=== PATIENT | female | born 1950 ===

== ENCOUNTER 2020-07-06 06:44 | Day surgery (SDC) | payer OTHER, MEDICARE ==
[2020-07-06] MEDS ORDERED: SODIUM CHLORIDE 0.9% 1000 ML 1,000 ML IV SCH (07:00)
[2020-07-06] MEDS ORDERED: SODIUM CHLORIDE 0.9% 1000 ML 1,000 ML ONE (07:07)
[2020-07-06] MEDS ORDERED: WATER FOR IRRIG STERILE 250 ML BOTTLE IR ONE (07:23)
[2020-07-06] MEDS ORDERED: WATER FOR IRRIG STERILE 1,000 ML BOTTLE ONE (07:23)
[2020-07-06] MEDS ORDERED: INSULIN REGULAR, HUMAN 100 UNIT/ML 3ML VIAL IV ONE (07:26)
--- NOTE | 2020-07-06 07:29 | Anesthesia Consultation ---
Anesthesia Consult and Med Hx Date of service: 07/06/20 - Airway Anesthetic Teeth Evaluation: Good ROM Head & Neck: Adequate Mental/Hyoid Distance: Adequate Mallampati Class: Class III Intubation Access Assessment: Possibly Difficult - Pulmonary Exam CTA: Yes - Cardiac Exam Cardiac Exam: RRR - Pre-Operative Health Status ASA Pre-Surgery Classification: ASA2 Proposed Anesthetic Plan: MAC - Pulmonary Hx Smoking: No Hx Respiratory Symptoms: No - Cardiovascular System Hx Hypertension: No Hx Heart Attack/AMI: No Hx Percutaneous Transluminal Coronary Angioplasty (PTCA): No Hx Cardia Arrhythmia: No - Central Nervous System CVA: No - Gastrointestinal Hx Gastroesophageal Reflux Disease: No - Endocrine Hx Renal Disease: No Hx Liver Disease: No Hx Non-Insulin Dependent Diabetes: Yes Hx Thyroid Disease: No - Other Systems Hx Obesity: No - Additional Comments Anesthesia Medical History Comments: No hx anesthetic complications. Has not taken oral DM medications in 2 days. Glucose elevated in preop. Will give insulin and recheck.
--- NOTE | 2020-07-06 07:29 | Anesthesia Day of Surgery ---
Anesthesia Day of Surgery - Day of Surgery Patient Examined: Yes Patient H&P Reviewed: Yes Patient is NPO: Yes
[2020-07-06] MEDS ORDERED: INSULIN REGULAR, HUMAN 100 UNITS/1 ML ONE (07:32)
[2020-07-06] MEDS ORDERED: LIDOCAINE MPF (2%) 20 MG/1 ML VIAL 5 ML ONE (08:10)
[2020-07-06] MEDS ORDERED: propofoL 200 MG/20 ML VIAL IV ONE (08:13)
--- NOTE | 2020-07-06 09:16 | Operative Report ---
PROCEDURE: Colonoscopy. INDICATIONS: A 70-year-old female originally from the 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 Repeat colonoscopy was done to make sure there was not any recurrence of any polyps. DESCRIPTION OF PROCEDURE: Procedure was done after getting informed consent with MAC anesthesia. Instrument was passed through the rectum onto the cecum, which was identified with ileocecal valve and appendiceal orifice. The terminal ileum was intubated showed normal ileal mucosa. In the cecum adjacent to the appendiceal orifice, there was a 10-12 mm polyp that was sessile that was removed by cold snare polypectomy. There was some oozing of blood from that area, so the tip of the snare polypectomy was used to cauterize that area. The polyp was caught with a cold biopsy forceps and retrieved. The remaining portion of the proximal colon including the ascending colon showed normal mucosa of the transverse colon, descending colon and sigmoid as well as the rectum showed normal mucosa and the rectum showed some minor internal hemorrhoid on the retroverted view. There was minimal bleeding associated with the polypectomy and no complications associated with the procedure. There was no diverticular disease noted. ASSESSMENT: Colon polyp screening, prior history of colon polyp, solitary cecal polyp, which was sessile and about 10-12 mm in diameter that was removed by cold snare polypectomy and retrieved, but heat from the polypectomy tip had to be applied to cauterize the polypectomy site, minor internal hemorrhoid, normal ileal mucosa. PLAN: To have the patient avoid aspirin and aspirin-related products for the next 4-5 days, otherwise resume home medication and follow up in the office in 1-2 weeks' time. Procedure was done in the GI lab with assistance of the GI lab team, which included ROHAN Sauceda, haider Peterson and with assistance of anesthesia. JOB# [id number] SHARON/TYRA
--- NOTE | 2020-07-06 09:26 | Procedure Note ---
Date of procedure: 07/06/20 Pre-op diagnosis: Colon Polyp Screening/ P/H/O Colon Polyp (tubullovillous adenoma) Post-op diagnosis: other (Solitary,Cecal Polyp/Minor,Internal Hemoprrhoid/ Normal,Ileal Mucosa) Procedure: Conoscopy with Snare Polypectomy Anesthesia: MAC Surgeon: ROSALIND SANCHES Estimated blood loss: minimal Pathology: list Specimen disposition: to lab Condition: stable Disposition: same day (Avoid aspirin and NSAID for 5 days; otherwise resume home medication and followup in 1 to 2 weeks ([phone]).)
[2020-07-06] MEDS ORDERED: DEXTROSE 50% IN WATER (25GM) 50 ML SYRINGE IV ONE (09:38)
[2020-07-06] MEDS ORDERED: DEXTROSE 50% IN WATER (25GM) 50 ML SYRINGE IV SCH (10:00)
--- NOTE | 2020-07-06 10:07 | Post Anesthesia Evaluation ---
- Post Anesthesia Evaluation Patient Participated: Yes Airway Patent: Yes Stable Respiratory Function: Yes Nausea/Vomiting: No Temp > 96.8F: Yes Pain Manageable: Yes Adequeate Hydration: Yes Anesthesia Complications: No Other Comments: Glucose elevated in preop so given short acting insulin. In PACU, glucose noted to be normal but down trending. Patient asymptomatic. Given half amp D50 prior to d/c. Patient instructed to recheck glucose in 1 hr and advised of hypoglycemia symptoms.
[2020-07-06 11:54] VITALS: BP 130/80
== END 2020-07-06 10:40 | disposition home or self-care (01) ==
LOC: GIO 06:44
DX: Z12.11 Encounter for screening for malignant neoplasm of colon (principal); D12.0 Benign neoplasm of cecum; K64.8 Other hemorrhoids; E11.9 Type 2 diabetes mellitus without complications; Z88.6 Allergy status to analgesic agent; Z86.010 Personal history of colon polyps; Z88.8 Allergy status to other drugs, medicaments and biological substances; Z88.2 Allergy status to sulfonamides; Z91.041 Radiographic dye allergy status; Z91.040 Latex allergy status; Z79.899 Other long term (current) drug therapy; Z79.84 Long term (current) use of oral hypoglycemic drugs
CPT/HCPCS: 45385; 82962; 88305; J2704; J7030; J1815